=== PATIENT | male | born 1975 | race Two or more races ===

== ENCOUNTER 2019-04-20 20:47 | Emergency (ER) | payer SELFPAY ==
[~2019-04-20] VITALS: Ht 172.7 cm; Wt 86.3 kg
[2019-04-20 21:00] VITALS: BP 138/79
[2019-04-20] MEDS ORDERED: HYDROcodone/APAP 5/325 TABLET PO ONE (21:30)
[2019-04-20] MEDS ORDERED: HYDROcodone/APAP 5/325 TABLET ONE (21:35)
== END 2019-04-20 22:55 | disposition home or self-care (01) ==
LOC: ED 22:49
DX: S92.425A Nondisplaced fracture of distal phalanx of left great toe, initial encounter for closed fracture (principal); Z88.0 Allergy status to penicillin; W20.8XXA Other cause of strike by thrown, projected or falling object, initial encounter; Y93.89 Activity, other specified; Y92.89 Other specified places as the place of occurrence of the external cause; Y99.0 Civilian activity done for income or pay
CPT/HCPCS: 99283

== ENCOUNTER 2020-05-23 21:31 | Inpatient (IN) | payer OTHER ==
[~2020-05-23] VITALS: Ht 172.7 cm; Wt 86.1 kg
--- NOTE | 2020-05-23 21:36 | NUR ---
QING, pt called after one episode of emesis with bright red blood. Pt reports "not feeling well yesterday. Denies abdominal pain. Reports eating pizza prior to episode. Pt diabetic, bgl 420 in field and received 1 L [employer], upon arrival to ED bgl is 397
[2020-05-23] MEDS ORDERED: SODIUM CHLORIDE 0.9% 1,000 ML IV ONE (21:54)
[2020-05-23] MEDS ORDERED: SODIUM CHLORIDE FLUSH 10ML SYR IVF ONE (22:00)
[2020-05-23] MEDS ORDERED: SODIUM CHLORIDE 0.9% 1,000ML IVBOLUS ONE (22:00)
[2020-05-23] MEDS ORDERED: ONDANSETRON 2MG/ML, 2ML IVPush ONE (22:00)
[2020-05-23] MEDS ORDERED: PANTOPRAZOLE 40 MG IV IVPush ONE (22:00)
[2020-05-23] MEDS ORDERED: ONDANSETRON 2MG/ML, 2ML ONE (22:01)
[2020-05-23] MEDS ORDERED: PANTOPRAZOLE 40 MG IV ONE (22:01)
[2020-05-23 22:46] LABS: ALBUMIN 1.7 g/dL (3.4-5.0); ANION GAP 13 mmol/L (5-15); CALCIUM 7.5 mg/dL (8.5-10.1); CHLORIDE 104 mmol/L (98-107)
[2020-05-23 22:49] LABS: ALANINE AMINOTRANSFERASE 24 U/L (12-78); ALKALINE PHOSPHATASE 84 U/L (45-117); BILIRUBIN,TOTAL 1.1 mg/dL (0.2-1.0); CREATININE 1.08 mg/dL (0.7-1.3); TOTAL PROTEIN 4.7 g/dL (6.4-8.2)
[2020-05-23 22:53] LABS: INTERNATIONAL NORMALIZED RATIO 1.51 (0.93-1.1); PROTHROMBIN TIME 16.1 Seconds (9.6-11.5)
[2020-05-23 23:09] LABS: MEAN CORPUSCULAR HEMOGLOBIN 19.2 pg (27.5-34.5); MEAN CORPUSCULAR VOLUME 66.1 fL (81-97); PLATELET COUNT 140 x10^3/uL (130-400); RED BLOOD COUNT 1.57 x10^6/uL (4.38-5.82)
[2020-05-23] MEDS ORDERED: PANTOPRAZOLE 80 MG in SODIUM CHLORIDE 0.9% 100 ML IV SCH (23:13)
[2020-05-23] MEDS ORDERED: OCTREOTIDE 100MCG/ML, 1ML (0.1MG/ML) ONE (23:27)
[2020-05-23] MEDS ORDERED: SODIUM CHLORIDE FLUSH 10ML SYR IVF PRN (23:30)
[2020-05-23] MEDS ORDERED: OCTREOTIDE 100MCG/ML, 1ML (0.1MG/ML) IV ONE (23:30)
[2020-05-23 23:32] LABS: BASOPHILS # (AUTO) 0.05 x10^3/uL (0-0.1); BASOPHILS % (AUTO) 0 % (0-1); EOSINOPHILS # (AUTO) 0.01 x10^3/uL (0-0.4); EOSINOPHILS % (AUTO) 0 % (1-7); LYMPHOCYTES # (AUTO) 0.92 x10^3/uL (1-3.4); LYMPHOCYTES % (AUTO) 8 % (22-44); MD MORPH REVIEW ONLY; MONOCYTES # (AUTO) 0.77 x10^3/uL (0.2-0.8); MONOCYTES % (AUTO) 7 % (2-9); NEUTROPHILS # (AUTO) 9.97 x10^3/uL (1.8-6.8); NEUTROPHILS % (AUTO) 85 % (42-75)
[2020-05-23 23:33] LABS: ANISOCYTOSIS 1+; HYPOCHROMIA 1+; MICROCYTOSIS 1+; POLYCHROMASIA 1+; TARGET CELLS 1+
[2020-05-23 23:34] LABS: <PLATELET ESTIMATE> ADEQUATE; <PLT MORPHOLOGY> NORMAL PLT MORPH
[2020-05-24] VITALS (12 sets, daily range): BP systolic 110–167; BP diastolic 54–85
--- NOTE | 2020-05-24 00:10 | NUR ---
Blood transfusion begun at this time. Pre transfusion VSS, NAD noted, pt denies hx of transfusions. Pt medicated per mar. Provided with warm blankets and mouth swabs as pt is NPO. Will continue to monitor
[2020-05-24] MEDS: OCTREOTIDE 500 MCG in SODIUM CHLORIDE 0.9% 99 ML IV SCH ×3 (00:14→20:28)
[2020-05-24] MEDS: PANTOPRAZOLE 80 MG in SODIUM CHLORIDE 0.9% 100 ML IV SCH ×5 (00:14→20:28)
--- NOTE | 2020-05-24 00:25 | NUR ---
VSS at this time, no signs of transfusion reactions, pt resting comfortabl in rney with NAD noted,
--- NOTE | 2020-05-24 01:46 | NUR ---
BREAK RN: PT RESTING ON OMAR IN NAD. PT REQUESTING WATER, EDUCATED ON THE REASON HE CANNOT HAVE WATER. HE HAS BEEN PROVIDED WITH MOUTH SWABS, STATES THEY AREN'T HELPING. BLOOD INFUSING. NO SIGNS OF REACTION. NO COMPLAINTS FROM PT OTHER THAN DRY MOUTH. FAMILY AT BEDSIDE. CALL LIGHT WITHIN REACH.
--- NOTE | 2020-05-24 01:48 | NUR ---
PT ALSO REQUESTING MEDS FOR ANXIETY. STATES HE TYPICALLY TAKES ATVIAN PRN AT HOME. WILL DISCUSS WITH ERP
[2020-05-24] MEDS ORDERED: LORazepam 2 MG/ML, 1ML ONE ×2 (01:58→02:05)
[2020-05-24] MEDS ORDERED: LORazepam 2 MG/ML, 1ML IVPush ONE (02:00)
--- NOTE | 2020-05-24 02:06 | NUR ---
BLOOD COMPLETE. PT MEDICATED WITH ATIVAN FOR ANXIETY. ALL VITALS STABLE. REPORT TO AUGUSTO COOK
--- NOTE | 2020-05-24 02:28 | NUR ---
Pt transferred into a hospital bed, provided with new warm blankets and has no further requests at this time
[2020-05-24] MEDS ORDERED: PHYTONADIONE 10 MG/ML, 1ML ONE (03:00)
[2020-05-24] MEDS ORDERED: ONDANSETRON 2MG/ML, 2ML IV PRN (03:00)
[2020-05-24] MEDS ORDERED: THIAMINE 200 MG in SODIUM CHLORIDE 0.9% 50 ML IV ONE (03:00)
--- NOTE | 2020-05-24 03:05 | NUR ---
Thiamine and humalog pen requested from pharmacy
[2020-05-24] MEDS: PHYTONADIONE 10 MG/ML, 1ML SQ SCH (03:50)
[2020-05-24] MEDS: INSULIN LISPRO 100 UNITS/ML, PEN SQ-INSULIN SCH ×5 (03:50→20:06)
--- NOTE | 2020-05-24 03:52 | NUR ---
Placed call to Dr Sanchez to inform her up H&H, order to be placed for another unit of PRBCs
--- NOTE | 2020-05-24 04:20 | NUR ---
transfusion begun at this time, pre transfusion vss, NAD noted,
--- NOTE | 2020-05-24 04:35 | NUR ---
No signs of transfusion reactions at this time, vss, will continue to monitor
[2020-05-24 04:52] LABS: INTERNATIONAL NORMALIZED RATIO 1.43 (0.93-1.1); PROTHROMBIN TIME 15.2 Seconds (9.6-11.5)
--- NOTE | 2020-05-24 06:42 | NUR ---
transfusion ended at this time, vss, nad noted, pt ambulated to restroom without issue
--- NOTE | 2020-05-24 06:49 | NUR ---
REPORT FROM JOYCE
--- NOTE | 2020-05-24 08:59 | NUR ---
SISTER CALLED- [phone], VINCENZO. PT OK TO GIVE INFO
--- NOTE | 2020-05-24 09:42 | NUR ---
pt resting, vss. no needs at this time
--- NOTE | 2020-05-24 11:05 | NUR ---
DISCUSSED W MD ALATORRE, PT TO RECIEVE 2 MORE UNITS OF RBC. NURSE TO ORDER H/H 1 HOUR AFTER BOTH TRANSFUSIONS COMPLETE. NO BLOODY STOOLS OR EMESIS NOTICED BY RN
--- NOTE | 2020-05-24 11:07 | NUR ---
DISCUSSED W PHARMACY, IV OCTREOTIDE AND IV PROTONIX COMPATIBLE.
--- NOTE | 2020-05-24 11:58 | NUR ---
REPORT TO SONIA
[2020-05-24] MEDS ORDERED: MOVIPREP POWDER 1 PREP KIT PO SCH (16:00)
[2020-05-24] MEDS: LACTATED RINGERS 1,000 ML IV SCH (18:44)
[2020-05-25] MEDS ORDERED: LORazepam 0.5MG TABLET PO ONE (00:30)
[2020-05-25 00:31] VITALS: BP 151/85
[2020-05-25 03:20] LABS: MEAN CORPUSCULAR HEMOGLOBIN 24.4 pg (27.5-34.5); MEAN CORPUSCULAR HGB CONC 31.6 g/dL (33.2-36.2); MEAN CORPUSCULAR VOLUME 77.2 fL (81-97); MEAN PLATELET VOLUME 10.7 fL (7.4-10.4); PLATELET COUNT 80 x10^3/uL (130-400); RED BLOOD COUNT 2.91 x10^6/uL (4.38-5.82); RED CELL DISTRIBUTION WIDTH 22.6 % (9.4-14.8)
[2020-05-25 03:29] LABS: INTERNATIONAL NORMALIZED RATIO 1.22 (0.93-1.1)
[2020-05-25 03:49] LABS: BASOPHILS # (AUTO) 0.06 x10^3/uL (0-0.1); BASOPHILS % (AUTO) 1 % (0-1); EOSINOPHILS # (AUTO) 0.13 x10^3/uL (0-0.4); EOSINOPHILS % (AUTO) 2 % (1-7); LYMPHOCYTES # (AUTO) 1.12 x10^3/uL (1-3.4); LYMPHOCYTES % (AUTO) 15 % (22-44); MD SCAN; MONOCYTES # (AUTO) 0.37 x10^3/uL (0.2-0.8); MONOCYTES % (AUTO) 5 % (2-9); NEUTROPHILS # (AUTO) 5.75 x10^3/uL (1.8-6.8); NEUTROPHILS % (AUTO) 77 % (42-75)
[2020-05-25] MEDS ORDERED: MOVIPREP POWDER 1 PREP KIT PO SCH (04:00)
[2020-05-25 04:41] LABS: ALBUMIN 2.2 g/dL (3.4-5.0); ANION GAP 11 mmol/L (5-15); CALCIUM 7.2 mg/dL (8.5-10.1); CHLORIDE 113 mmol/L (98-107)
[2020-05-25 04:45] LABS: % IRON SATURATION 7 % (20-55); ALANINE AMINOTRANSFERASE 33 U/L (12-78); ALKALINE PHOSPHATASE 69 U/L (45-117); BILIRUBIN,TOTAL 4.3 mg/dL (0.2-1.0); CREATININE 0.82 mg/dL (0.7-1.3); IRON LEVEL 28 mcg/dL (65-175); TOTAL IRON BINDING CAPACITY 392 mcg/dL (250-450); TOTAL PROTEIN 5.2 g/dL (6.4-8.2)
[2020-05-25] MEDS: LACTATED RINGERS 1,000 ML IV SCH (04:52)
[2020-05-25] MEDS: PANTOPRAZOLE 80 MG in SODIUM CHLORIDE 0.9% 100 ML IV SCH ×2 (05:24→19:13)
[2020-05-25] MEDS: OCTREOTIDE 500 MCG in SODIUM CHLORIDE 0.9% 99 ML IV SCH ×2 (05:24→19:13)
[2020-05-25 06:42] VITALS: BP 176/91
[2020-05-25 07:41] VITALS: BP 146/81
[2020-05-25] MEDS: PHYTONADIONE 10 MG/ML, 1ML SQ SCH (08:15)
[2020-05-25] MEDS: INSULIN LISPRO 100 UNITS/ML, PEN SQ-INSULIN SCH ×4 (08:16→20:06)
[2020-05-25] MEDS ORDERED: PROPOFOL 50 ML ONE (08:35)
[2020-05-25] MEDS ORDERED: LIDOCAINE-MPF 2% ,5ML ONE ×2 (08:36)
[2020-05-25] MEDS ORDERED: CHLORHEXIDINE 15 ML UDC ONE (09:21)
[2020-05-25] MEDS ORDERED: LORazepam 2 MG/ML, 1ML IVPush PRN (10:00)
[2020-05-25] MEDS ORDERED: LABETALOL 5MG/ML, 20ML IV PRN (10:00)
[2020-05-25] MEDS ORDERED: OXYcodone 5 MG/5 ML ORAL.SOL UDC PO PRN (10:00)
[2020-05-25] MEDS ORDERED: FENTANYL PF 100 MCG/2ML IV PRN (10:00)
[2020-05-25] MEDS ORDERED: hydrALAzine 20 MG/ML, 1ML IV PRN (10:00)
[2020-05-25] MEDS ORDERED: PROMETHAZINE 25 MG/ML, 1ML IVPush PRN (10:00)
[2020-05-25] MEDS ORDERED: ONDANSETRON 2MG/ML, 2ML IVPush PRN ×2 (10:00→12:30)
[2020-05-25] MEDS ORDERED: ONDANSETRON ODT 4 MG PO PRN (12:30)
[2020-05-25] MEDS: IRON SUCROSE COMPLEX 100MG/5ML IV SCH (12:49)
[2020-05-25 13:27] VITALS: BP 151/93
[2020-05-25 15:45] LABS: CHOL/HDL RATIO 3.7; LDL/HDL RATIO 1.4 (0.5-3.0)
[2020-05-25 19:04] VITALS: BP 145/80
[2020-05-25] MEDS: MELATONIN 5 MG TABLET PO PRN (22:51)
[2020-05-25] MEDS ORDERED: OXYcodone IR 5MG TABLET PO PRN (23:00)
[2020-05-26] VITALS (7 sets, daily range): BP systolic 134–148; BP diastolic 74–90
[2020-05-26] MEDS: PANTOPRAZOLE 80 MG in SODIUM CHLORIDE 0.9% 100 ML IV SCH (05:19)
[2020-05-26] MEDS: OCTREOTIDE 500 MCG in SODIUM CHLORIDE 0.9% 99 ML IV SCH (05:19)
[2020-05-26 06:23] LABS: ALANINE AMINOTRANSFERASE 31 U/L (12-78); ALBUMIN 2.2 g/dL (3.4-5.0); ANION GAP 9 mmol/L (5-15); CALCIUM 6.9 mg/dL (8.5-10.1); CHLORIDE 112 mmol/L (98-107); CREATININE 0.81 mg/dL (0.7-1.3)
[2020-05-26 06:26] LABS: ALKALINE PHOSPHATASE 75 U/L (45-117); BILIRUBIN,TOTAL 2.6 mg/dL (0.2-1.0)
[2020-05-26 06:27] LABS: MEAN CORPUSCULAR HEMOGLOBIN 24.1 pg (27.5-34.5); MEAN CORPUSCULAR HGB CONC 30.7 g/dL (33.2-36.2); MEAN CORPUSCULAR VOLUME 78.7 fL (81-97); MEAN PLATELET VOLUME 9.9 fL (7.4-10.4); PLATELET COUNT 87 x10^3/uL (130-400); RED BLOOD COUNT 2.67 x10^6/uL (4.38-5.82); RED CELL DISTRIBUTION WIDTH 23.5 % (9.4-14.8)
[2020-05-26 07:30] LABS: BASOPHILS # (AUTO) 0.05 x10^3/uL (0-0.1); BASOPHILS % (AUTO) 1 % (0-1); EOSINOPHILS # (AUTO) 0.14 x10^3/uL (0-0.4); EOSINOPHILS % (AUTO) 2 % (1-7); LYMPHOCYTES # (AUTO) 0.95 x10^3/uL (1-3.4); LYMPHOCYTES % (AUTO) 13 % (22-44); MD MORPH REVIEW ONLY; MONOCYTES # (AUTO) 0.48 x10^3/uL (0.2-0.8); MONOCYTES % (AUTO) 7 % (2-9); NEUTROPHILS # (AUTO) 5.46 x10^3/uL (1.8-6.8); NEUTROPHILS % (AUTO) 77 % (42-75)
[2020-05-26 07:31] LABS: <PLATELET ESTIMATE> DECREASED; <PLT MORPHOLOGY> NORMAL PLT MORPH; ANISOCYTOSIS 2+; MICROCYTOSIS 1+; POLYCHROMASIA 1+
[2020-05-26 07:32] LABS: HYPOCHROMIA 2+
[2020-05-26] MEDS: INSULIN LISPRO 100 UNITS/ML, PEN SQ-INSULIN SCH ×4 (10:06→21:29)
[2020-05-26] MEDS: PHYTONADIONE 10 MG/ML, 1ML SQ SCH (10:11)
[2020-05-26] MEDS: IRON SUCROSE COMPLEX 100MG/5ML IV SCH (10:16)
[2020-05-26] MEDS: CIPROFLOXACIN/PMX 400MG/200ML 200 ML IV SCH (15:14)
[2020-05-26] MEDS: PANTOPRAZOLE 40MG TABLET PO SCH (21:29)
[2020-05-26] MEDS: MELATONIN 5 MG TABLET PO PRN (22:19)
[2020-05-27 01:33] VITALS: BP 140/73
[2020-05-27] MEDS: CIPROFLOXACIN/PMX 400MG/200ML 200 ML IV SCH ×2 (02:49→15:55)
[2020-05-27 06:41] LABS: ALBUMIN 2.3 g/dL (3.4-5.0); ANION GAP 8 mmol/L (5-15); CALCIUM 7.4 mg/dL (8.5-10.1); CHLORIDE 111 mmol/L (98-107)
[2020-05-27 06:45] LABS: ALANINE AMINOTRANSFERASE 28 U/L (12-78); ALKALINE PHOSPHATASE 91 U/L (45-117); BILIRUBIN,TOTAL 3.1 mg/dL (0.2-1.0); CREATININE 0.79 mg/dL (0.7-1.3); TOTAL PROTEIN 5.1 g/dL (6.4-8.2)
[2020-05-27 07:52] LABS: BASOPHILS # (AUTO) 0.03 x10^3/uL (0-0.1); BASOPHILS % (AUTO) 0 % (0-1); EOSINOPHILS # (AUTO) 0.12 x10^3/uL (0-0.4); EOSINOPHILS % (AUTO) 1 % (1-7); LYMPHOCYTES # (AUTO) 0.89 x10^3/uL (1-3.4); LYMPHOCYTES % (AUTO) 8 % (22-44); MD SCAN; MEAN CORPUSCULAR HEMOGLOBIN 25.1 pg (27.5-34.5); MEAN CORPUSCULAR HGB CONC 31.6 g/dL (33.2-36.2); MEAN CORPUSCULAR VOLUME 79.5 fL (81-97); MEAN PLATELET VOLUME 10.6 fL (7.4-10.4); MONOCYTES # (AUTO) 0.68 x10^3/uL (0.2-0.8); MONOCYTES % (AUTO) 6 % (2-9); NEUTROPHILS # (AUTO) 9.11 x10^3/uL (1.8-6.8); NEUTROPHILS % (AUTO) 84 % (42-75); PLATELET COUNT 85 x10^3/uL (130-400); RED BLOOD COUNT 2.93 x10^6/uL (4.38-5.82)
[2020-05-27] MEDS: PANTOPRAZOLE 40MG TABLET PO SCH (08:28)
[2020-05-27] MEDS: IRON SUCROSE COMPLEX 100MG/5ML IV SCH (08:28)
[2020-05-27] MEDS: INSULIN LISPRO 100 UNITS/ML, PEN SQ-INSULIN SCH ×3 (08:29→16:50)
[2020-05-27 08:43] VITALS: BP 145/78
[2020-05-27 13:43] VITALS: BP 127/79
[2020-05-27] MEDS ORDERED: METF500T PO (16:58)
[2020-05-27] MEDS ORDERED: PANT40TA5 PO (16:58)
[2020-05-27] MEDS ORDERED: CIPR500T87 PO (16:58)
[2020-05-27] MEDS ORDERED: LACT1TAB13 PO (16:59)
== END 2020-05-27 18:52 | disposition home or self-care (01) | DRG 432 ==
LOC: ED 23:40 → EDIP 23:47 → 4EST 05-24 12:36
PROVIDERS: ADMIT Family Medicine; ATTEND Internal Medicine
PROC: 30233N1 Transfusion of Nonautologous Red Blood Cells into Peripheral Vein, Percutaneous Approach (ICD-10-PCS; 2020-05-24)
PROC: 06L38CZ Occlusion of Esophageal Vein with Extraluminal Device, Via Natural or Artificial Opening Endoscopic (ICD-10-PCS; 2020-05-25)
PROC: 0DB98ZX Excision of Duodenum, Via Natural or Artificial Opening Endoscopic, Diagnostic (ICD-10-PCS; 2020-05-25)
PROC: 0DJD8ZZ Inspection of Lower Intestinal Tract, Via Natural or Artificial Opening Endoscopic (ICD-10-PCS; 2020-05-25)
PROC: 0DB68ZX Excision of Stomach, Via Natural or Artificial Opening Endoscopic, Diagnostic (ICD-10-PCS; principal; 2020-05-25 09:00)
DX: K70.31 Alcoholic cirrhosis of liver with ascites (principal); I85.11 Secondary esophageal varices with bleeding; K76.6 Portal hypertension; E87.2 Acidosis; D62 Acute posthemorrhagic anemia; D68.69 Other thrombophilia; Q43.8 Other specified congenital malformations of intestine; K82.4 Cholesterolosis of gallbladder; F41.9 Anxiety disorder, unspecified; F10.21 Alcohol dependence, in remission; I10 Essential (primary) hypertension; E11.65 Type 2 diabetes mellitus with hyperglycemia; E11.40 Type 2 diabetes mellitus with diabetic neuropathy, unspecified; K73.9 Chronic hepatitis, unspecified; Z79.82 Long term (current) use of aspirin; Z83.3 Family history of diabetes mellitus; Z79.899 Other long term (current) drug therapy
CPT/HCPCS: 36415; 74021; 96361; 96374; 96375; 99291; J3490; 76700; 80053; 80061; 80074; 82103; 82390; 82728; 82784; 82962; 83036; 83516; 83540; 83550; 83605; 83690; 85014; 85018; 85025; 85610; 85730; 86038; 86850; 86900; 86923; 87635; 88305; 88342; 93005; G0378; J0744; J1756; J2354; J2405; J2704; J3411; J3430; C9113; J1815; J2060; J7030; J7120; P9016; Q0177